=== PATIENT | male | born 1975 | race Two or more races ===

== ENCOUNTER 2024-05-12 09:54 | Outpatient (AMB) | payer MEDICAID, SELFPAY ==
--- NOTE | 2024-05-12 10:07 | PD.GSCLVISIT ---
Vital Signs - [facility] 05/12/24 10:09 Height 1.7 m Height Method Stated Weight 82.157 kg Weight Measurement Method Standing Scale BMI 28.4 BP 158/90 H Blood Pressure Source Automatic Cuff Blood Pressure Location Right Upper Arm Position Sitting Respiration 18 Pulse 67 Pulse Source Monitor Temp 97.5 F Temp Source Temporal Artery Scan Pulse Oximetry (%) 95 Oxygen Delivery Method Room Air Med/Allergies Allergies & Medications Allergies No Known Allergies Allergy (Verified 05/12/24 10:10) Medication Reconciliation allopurinol 100 mg tablet 100 mg PO QDAY 04/07/24 [History Confirmed 05/12/24] [place] Intake Visit Data Collection New Patient or Established: Established Patient (seen at [facility] within 3 years) Reason for Visit:: COLONOSCOPY RESULTS Pain Present Currently: No Accounts Payable Associate Required: Yes PCP or OBGYN visit in last 3 months: Yes Hx Now: No Do You Feel Safe at Home: Yes Authorities Contacted: N/A Smoking Status Smoking Status: Never smoker Immunization / Flu Flu Vaccine in the Last 12 Months: No Flu Vaccine Exclusion Criteria: No Exclusion Criteria Past Medical History Past Medical History NEUROLOGIC: Negative Neurological Disorders or Seizures CARDIAC: Negative Cardiac Disorders or Congestive Heart Failure RESPIRATORY: Negative Chronic Obstructive Pulmonary Disease (COPD) or Asthma GASTROINTESTINAL: Negative Gastrointestinal Disorders GENITOURINARY: Negative Genitourinary Disorders or Renal Disease MUSCULOSKELETAL: Positive Arthritis and Gout ENDOCRINE: Negative Endocrine Disorders, Diabetes Mellitus Type 1 or Diabetes Mellitus Type 2 HEMATOLOGIC: Negative Blood Disorders or Sickle Cell Disease OTHER HISTORY: Positive Chicken Pox; Negative Hospitalization, Autoimmune Disease, Falls, Blood Transfusions, Mumps, Pertussis or Cancer Social History SMOKING STATUS: Smoking status: Never smoker ALCOHOL: Alcohol Intake: Former HOUSING: Housing: House LIVES WITH: Lives With: Family HPI HPI Narrative 48M with history of diverticulitis who presented for diagnostic colonoscopy 04/14/24 here to discuss results. Pt reports he feels well with no complaints, colonoscopy showed fair prep and diverticulosis but was otherwise negative ROS Review of Systems Systems Reviewed: All systems reviewed, normal except as documented Objective/Exam General General Appearance: alert, cooperative and well groomed Resp Respiratory exam: Absent respiratory distress Results Colonoscopy report reviewed Assessment & Plan Diagnosis / Problem List (1) Encounter to discuss colonoscopy results: Status: Acute Assessment & Plan: 48M with history of diverticulitis s/p diagnostic colonoscopy 04/14 showing diverticulosis, fair prep otherwise negative. Given the quality of prep I recommended repeat colonoscopy in 5 years Office Procedures GNS Level of Care Nursing/Assessment Patient Status: Established Patient Nursing Assessment/Reassesment: Medication Reconciliation, Update PMH in EMR and Vital Signs Coordination of Care: Complex Care and Chronic Disease 1-5, Education Complex Pt/Fam, Consent,records obtained, informed consent, Results/Orders obtained and Staff clarify orders Special Needs: Language special needs Established Patient Charge Established Patient Point Assignment: 95 Established Patient Point Charge: EP Level 3 (80-115) Patient Portal Questionaires Social History Living Situation History Housing: House Housing Other:: pt lives with and kids Tobacco History Smoking Status: Never smoker Alcohol History Alcohol Intake: Former Domestic Abuse History Do You Feel Safe at Home: Yes Review of Systems Report any current symptoms Only answer those that you have currently: Past Medical History Past Medical History Have you ever been diagnosed with any of the following: Neurological Problems Seizures: No Cardiology Problems Congestive Heart Failure: No Respiratory Problems Chronic Obstructive Pulmonary Disease (COPD): No Asthma: No Genital/Urinary Problems Renal Disease: No Musculoskeletal Problems Arthritis: Yes Gout: Yes Endocrine Problems Diabetes Mellitus Type 1: No Diabetes Mellitus Type 2: No Blood Problems Sickle Cell Disease: No Other Problems Hospitalization: No Autoimmune Disease: No Falls: No Blood Transfusions: No Chicken Pox: Yes Mumps: No Pertussis: No Cancer: No
[2024-05-12 10:09] VITALS: BP 158/90; PULSE 67; RESP 18; TEMP 36.4; O2SAT 95; BMI 28.4
== END 2024-05-12 10:21 | disposition home or self-care (01) ==
LOC: HODSRG 09:54
PROVIDERS: PCP Nurse Practitioner Family; Referring Provider Nurse Practitioner Family; Supervising Provider Surgery; Visit Provider Surgery
DX: Z48.815 Encounter for surgical aftercare following surgery on the digestive system (principal); K57.90 Diverticulosis of intestine, part unspecified, without perforation or abscess without bleeding
CPT/HCPCS: 99213; G0463